=== PATIENT | male | born 1980 | race Caucasian/White ===

== ENCOUNTER 2021-03-06 06:26 | Emergency (ER) | payer OTHER ==
[~2021-03-06] VITALS: Ht 168 cm; Wt 120.0 kg
[~2021-03-06 06:26] MED LIST: LISI20TA PO; RANI75TA57 PO
[2021-03-06 07:03] LABS: BASOPHILS % (AUTO) 1 % (0-10); EOSINOPHILS # (AUTO) 0.1 10^3/uL (0.0-0.3); EOSINOPHILS % (AUTO) 2 % (0-10); HEMATOCRIT 38 % (40-54); HEMOGLOBIN 13.1 g/dL (13.3-17.7); LYMPHOCYTES % (AUTO) 17 % (12-44); MEAN CORPUSCULAR HEMOGLOBIN 28 pg (25-34); MEAN CORPUSCULAR HGB CONC 35 g/dL (32-36); MEAN CORPUSCULAR VOLUME 82 fL (80-99); MEAN PLATELET VOLUME 11.2 fL (9.0-12.2); MONOCYTES # (AUTO) 0.5 10^3/uL (0.0-1.0); MONOCYTES % (AUTO) 8 % (0-12); NEUTROPHILS # (AUTO) 4.2 10^3/uL (1.8-7.8); NEUTROPHILS % (AUTO) 72 % (42-75); PLATELET COUNT 150 10^3/uL (130-400); WHITE BLOOD COUNT 5.9 10^3/uL (4.3-11.0)
[2021-03-06 07:10] LABS: ALBUMIN 4.3 GM/DL (3.2-4.5)
[2021-03-06 07:11] LABS: INR 1.1 (0.8-1.4); POTASSIUM 4.2 MMOL/L (3.6-5.0); PROTHROMBIN TIME PATIENT 14.2 SEC (12.2-14.7)
[2021-03-06 07:12] LABS: CALCIUM 8.7 MG/DL (8.5-10.1)
[2021-03-06 07:13] LABS: TOTAL PROTEIN 6.9 GM/DL (6.4-8.2)
[2021-03-06 07:15] LABS: BILIRUBIN,TOTAL 0.6 MG/DL (0.1-1.0)
[2021-03-06 07:17] LABS: CREATININE SERUM 0.85 MG/DL (0.60-1.30)
--- NOTE | 2021-03-06 07:17 | ED Chest Pain ---
General Chief Complaint: Chest Pain Stated Complaint: CP,AGUILAR,SOB,HIGH BLOOD PRESSURE 193/138 Nursing Triage Note: PT AMB TO ED BY POV WITH C/O HIGH BP, CP, AGUILAR, AND SOB. PT REPORTS HES HAD BP ISSUES FOR THE LAST 2 MONTHS. REPORTS CP LAST NIGHT DESCRIBED "TINGLING," BP AT 0500 THIS MORNING WAS 193/138. Source: patient Exam Limitations: no limitations History of Present Illness Date Seen by Provider: Mar 06, 2021 Time Seen by Provider: 06:39 Initial Comments This 40-year-old gentleman presents to the emergency room with about a month of intermittent episodes of chest discomfort described as a tingling in his central chest that radiates to his back and into his left arm. He has also had some recent subtle shortness of breath. He is not having any chest discomfort at this moment. He has a long history of labile and extreme hypertension. He saw Dr. Love yesterday and his Coreg dose was increased. Despite that he reports a blood pressure this morning of 190 systolic. He was suffering headache and chest discomfort at that time. He took his usual morning medications as well as hydralazine prior to arrival. He is prescribed hydralazine as needed for hypertensive exacerbations. He had a negative angiography in 2011. There are no stress tests or catheterizations on file since then. Patient denies any excessive stimulant use except for greater than 4 cans of soda a day. He denies any drug or alcohol use. He uses no dietary supplements, energy drinks, ADHD medications, etc. Allergies and Home Medications Allergies Coded Allergies: No Known Drug Allergies (Unverified , 03/01/11) Patient Home Medication List Home Medication List Reviewed: Yes Lisinopril (Prinivil) 20 Mg Tablet, 10 MG PO DAILY, (Reported) Entered as Reported by: LATANYA CAMPO on 03/01/112306 Ranitidine Hcl (Acid Control) 75 Mg Tablet, 1 TAB PO BID PRN, (Reported) Entered as Reported by: ALIVIA LYNN on 03/17/111946 Review of Systems Review of Systems Constitutional: no symptoms reported EENTM: No Symptoms Reported Respiratory: See HPI Cardiovascular: See HPI Gastrointestinal: No Symptoms Reported Genitourinary: No Symptoms Reported Musculoskeletal: no symptoms reported Skin: no symptoms reported Psychiatric/Neurological: Anxiety Endocrine: No Symptoms Reported Hematologic/Lymphatic: No Symptoms Reported Past Kdaqrnt-Wrlxax-Iueqpd Hx Patient Social History Tobacco Use?: Yes Smokeless Tobacco Frequency: Current Everyday User Use of E-Cig and/or Vaping dev: No Substance use?: No Alcohol Use?: No Pt feels they are or have been: No Immunizations Up To Date Influenza Vaccine Up-to-Date: No; Not Current First/Initial COVID19 Vaccinat: N/A Past Medical History Surgery/Hospitalization HX: HTN, ASTHMA Surgeries: Yes Cardiac (Heart cath with no interventions 2011) Respiratory: Yes Asthma Cardiac: Yes Hypertension Neurological: No Reproductive Disorders: No Genitourinary: No Gastrointestinal: Yes Gastroesophageal Reflux Musculoskeletal: No Endocrine: No HEENT: No Cancer: No Psychosocial: Yes Anxiety Integumentary: No Physical Exam Vital Signs Vital Signs - First Documented 03/06/21 06:44 Temp 37.0 Pulse 70 Resp 16 B/P (MAP) 148/102 (117) Pulse Ox 97 O2 Delivery Room Air Capillary Refill : Less Than 3 Seconds Height, Weight, BMI Height: '" Weight: lbs. oz. kg; 42.00 BMI Method:Stated General Appearance: No Apparent Distress, WD/WN HEENT: PERRL/EOMI, Normal ENT Inspection Neck: Normal Inspection; No JVD Respiratory: Lungs Clear, Normal Breath Sounds, No Accessory Muscle Use Cardiovascular: Regular Rate, Rhythm, No Edema, No Murmur Gastrointestinal: Normal Bowel Sounds, Non Tender, Soft Extremity: Normal Inspection, Non Tender, No Pedal Edema Neurologic/Psychiatric: Alert, Oriented x3, No Motor/Sensory Deficits, Normal Mood/Affect, business intelligence reporting analyst II-XII Norm as Tested Skin: Normal Color, Warm/Dry Progress/Results/Core Measures Results/Orders Lab Results Laboratory Tests Test 03/06/21 06:52 03/06/21 07:10 Range/Units White Blood Count 5.9 4.3-11.0 10^3/uL Red Blood Count 4.62 4.30-5.52 10^6/uL Hemoglobin 13.1 L 13.3-17.7 g/dL Hematocrit 38 L 40-54 % Mean Corpuscular Volume 82 80-99 fL Mean Corpuscular Hemoglobin 28 25-34 pg Mean Corpuscular Hemoglobin Concent 35 32-36 g/dL Red Cell Distribution Width 12.9 10.0-14.5 % Platelet Count 150 130-400 10^3/uL Mean Platelet Volume 11.2 9.0-12.2 fL Immature Granulocyte % (Auto) 1 % Neutrophils (%) (Auto) 72 42-75 % Lymphocytes (%) (Auto) 17 12-44 % Monocytes (%) (Auto) 8 0-12 % Eosinophils (%) (Auto) 2 0-10 % Basophils (%) (Auto) 1 0-10 % Neutrophils # (Auto) 4.2 1.8-7.8 10^3/uL Lymphocytes # (Auto) 1.0 1.0-4.0 10^3/uL Monocytes # (Auto) 0.5 0.0-1.0 10^3/uL Eosinophils # (Auto) 0.1 0.0-0.3 10^3/uL Basophils # (Auto) 0.0 0.0-0.1 10^3/uL Immature Granulocyte # (Auto) 0.0 0.0-0.1 10^3/uL Prothrombin Time 14.2 12.2-14.7 SEC INR Comment 1.1 0.8-1.4 Activated Partial Thromboplast Time 33 24-35 SEC D-Dimer 0.29 0.00-0.49 UG/ML Sodium Level 139 135-145 MMOL/L Potassium Level 4.2 3.6-5.0 MMOL/L Chloride Level 105 98-107 MMOL/L Carbon Dioxide Level 23 21-32 MMOL/L Anion Gap 11 5-14 MMOL/L Blood Urea Nitrogen 12 7-18 MG/DL Creatinine 0.85 0.60-1.30 MG/DL Estimat Glomerular Filtration Rate 112 BUN/Creatinine Ratio 14 Glucose Level 116 H 70-105 MG/DL Calcium Level 8.7 8.5-10.1 MG/DL Corrected Calcium 8.5 8.5-10.1 MG/DL Magnesium Level 2.1 1.6-2.4 MG/DL Total Bilirubin 0.6 0.1-1.0 MG/DL Aspartate Amino Transf (AST/SGOT) 15 5-34 U/L Alanine Aminotransferase (ALT/SGPT) 22 0-55 U/L Alkaline Phosphatase 64 40-136 U/L Myoglobin 27.6 10.0-92.0 NG/ML Troponin I < 0.028 <0.028 NG/ML C-Reactive Protein High Sensitivity 0.33 0.00-0.50 MG/DL B-Type Natriuretic Peptide 54.2 <100.0 PG/ML Total Protein 6.9 6.4-8.2 GM/DL Albumin 4.3 3.2-4.5 GM/DL Renin Activity Aldosterone NG/DL Procalcitonin 0.01 <0.10 NG/ML Thyroid Stimulating Hormone (TSH) 0.78 0.35-4.94 UIU/ML Free Thyroxine 0.78 0.70-1.48 NG/DL Influenza Type A (RT-PCR) Not Detected Not Detecte Influenza Type B (RT-PCR) Not Detected Not Detecte SARS-CoV-2 RNA (RT-PCR) Not Detected Not Detecte My Orders Orders - JENNY ALLISON MD Covid 19 Inhouse Test (03/06/21 06:39) Influenza A And B By Pcr (03/06/21 06:39) Cbc With Automated Diff (03/06/21 06:39) Magnesium (03/06/21 06:39) Chest 1 View, Ap/Pa Only (03/06/21 06:39) Ekg Tracing (03/06/21 06:39) Comprehensive Metabolic Panel (03/06/21 06:39) Myoglobin Serum (03/06/21 06:39) Protime With Inr (03/06/21 06:39) Partial Thromboplastin Time (03/06/21 06:39) O2 (03/06/21 06:39) Monitor-Rhythm Ecg Trace Only (03/06/21 06:39) Ed Iv/Invasive Line Start (03/06/21 06:39) Troponin I Marlon (03/06/21 06:39) Bnp [place] (03/06/21 06:39) Hs C Reactive Protein (03/06/21 06:39) Fibrin Degradation Products (03/06/21 06:39) Procalcitonin (Pct) (03/06/21 06:39) Thyroid Stimulating Hormone (03/06/21 07:03) Free T4 (Free Thyroxine) (03/06/21 07:03) Renin Activity Plasma (03/06/21 08:31) Aldosterone Serum (03/06/21 08:31) Aldosterone Renin Ratio (03/06/21 08:31) Vital Signs/I&O 03/06/21 03/06/21 06:44 09:00 Temp 37.0 Pulse 70 64 Resp 16 16 B/P (MAP) 148/102 (117) 127/92 Pulse Ox 97 96 O2 Delivery Room Air Room Air Blood Pressure Mean: 117 Progress Progress Note #1: Time: 07:39 Progress Note Chest pain and headache have improved. Blood pressure is significantly improved from his measurements at home. Chest pain work-up is underway. Progress Note #2: Time: 08:36 Progress Note I discussed the situation with Dr. Love. Work-up here was unremarkable. Bl ood pressure has improved without additional treatment. Dr. Love would like him to allow medications a week or 2 to take effect before determining if further measures need to be taken. Patient did reveal that he has not been using his CPAP routinely. I have strongly encouraged him to use CPAP as this could be a major contributing factor to his headaches and labile hypertension. I have instructed him to continue working on weight loss. Dietary recommendations are also being provided to reduce risk of acid reflux. Renal and and aldosterone labs have been ordered for outpatient work-up. We will try to obtain those on his blood work here to avoid creating another encounter for blood draw. Initial ECG Impression Date: Mar 06, 2021 Initial ECG Impression Time: 06:55 Initial ECG Rate: 68 Initial ECG Rhythm: Normal Sinus Comment Sinus rhythm with no diagnostic ST elevation or depression. Incomplete right bundle branch block by automated read. No axis deviation. No STEMI. Diagnostic Imaging Diagonstic Imaging: Xray Plain Films/CT/US/NM/MRI: chest Comments NAME: ALBINO QUIÑONEZ [facility] REC#: [id number] PT STATUS: REG ER : 1980 PHYSICIAN: JENNY ALLISON MD ADMIT DATE: 03/06/21/ER Draft Date of Exam:03/06/21 CHEST 1 VIEW, AP/PA ONLY EXAM: CHEST 1 VIEW, AP/PA ONLY INDICATION: Chest pain. COMPARISON: 03/17/2011. FINDINGS: Normal heart size and pulmonary vascularity. No dense consolidation, pleural effusion or pneumothorax. No acute osseous findings. IMPRESSION: No acute cardiopulmonary findings. Dictated on workstation # [id number] Dict: 03/06/2112 Trans: 03/06/21 0714 [place] [id number] Interpreted by: ALONA FREEDMAN MD Departure Impression Primary Impression: Chest pain Qualified Codes: R07.9 - Chest pain, unspecified Additional Impressions: Labile hypertension Anxiety Obstructive sleep apnea Disposition: 01 HOME, SELF-CARE Condition: Stable Departure-Patient Inst. Decision time for Depature: 08:35 Referrals: ELISHA SCHULTE MD (PCP/Family) Primary Care Physician Patient Instructions: High Blood Pressure in Adults, Anxiety, Adult (DC) Add. Discharge Instructions: Continue your medications as previously directed. Continue to work on weight loss and use your CPAP religiously anytime you are asleep. Continue to work on treating acid reflux with the increased dose of an acids as directed by Dr. Love. Also avoid the following: Eating large meals, eating close to bedtime, caffeine, carbonation, chocolate, citrus fruits and juices, tomato products, alcohol, tobacco, NSAID medications such as ibuprofen or naproxen, spicy foods, fatty or greasy foods, mints, or anything else you know irritates your stomach. The additional blood work ordered by Dr. Love has been ordered through your blood draw during the ER visit. You should not need to go in for additional blood work. Call with questions or concerns. Return to the ER if you have worsening symptoms. All discharge instructions reviewed with patient and/or family. Voiced understanding. Copy Copies To 1: PRISCILA LOVE JR, MD Copies To 2: ELISHA SCHULTE MD, JOSHUA T MD Mar 06, 2021 07:17
[2021-03-06 07:19] LABS: MAGNESIUM 2.1 MG/DL (1.6-2.4)
[2021-03-06 07:49] LABS: FREE T4 (FREE THYROXINE) 0.78 NG/DL (0.70-1.48)
[2021-03-06 09:00] VITALS: BP 127/92
== END 2021-03-06 09:10 | disposition home or self-care (01) ==
LOC: EDUNIT# 06:26 → ER 06:31
DX: R07.9 Chest pain, unspecified (principal); I10 Essential (primary) hypertension; F41.9 Anxiety disorder, unspecified; G47.33 Obstructive sleep apnea (adult) (pediatric); J45.909 Unspecified asthma, uncomplicated; K21.9 Gastro-esophageal reflux disease without esophagitis; F17.290 Nicotine dependence, other tobacco product, uncomplicated; Z20.822 Contact with and (suspected) exposure to COVID-19; Z79.899 Other long term (current) drug therapy
CPT/HCPCS: 36415; 71045; 80053; 82088; 83735; 83874; 83880; 84145; 84244; 84439; 84443; 84484; 85025; 85379; 85610; 85730; 86141; 87636; 93005; 93041

== ENCOUNTER → 2021-03-26 | Outpatient (CLI) | payer OTHER ==
[~2021-03-26] VITALS: Ht 167 cm; Wt 118.0 kg
[~2021-03-26] MED LIST changes: +CATHETER FLUSH 10 ML SYR IV PRN
[2021-03-26 09:13] VITALS: BP 117/72
--- NOTE | 2021-03-26 12:35 | NUCLEAR STRESS TEST ---
TREADMILL NUCLEAR STRESS TEST Date of procedure: 03/26/2021. Primary care provider: Kamron Cameron MD. Admitting physician: Joe Love Jr., MD. INDICATION: Abnormal electrocardiogram. BASELINE ELECTROCARDIOGRAM: Sinus rhythm with incomplete right bundle branch block. STRESS TEST PROCEDURE: The patient was exercised for a total of 10 minutes and 0 seconds of the standard Mo protocol achieving a maximum MET level of 10.3. The resting heart rate was 63 bpm and the peak heart rate was 154 bpm, which represents 86% of the maximum predicted heart rate. The resting blood pressure was 117/72 mmHg and the peak blood pressure was 165/90 mmHg. This represents a normal heart rate and a normal blood pressure response to exercise. The test was stopped due to fatigue. There was no chest discomfort during the test. There were no arrhythmias during the test. There were no significant stress induced electrocardiogram changes. The patient exhibited excellent exercise capacity for age. NUCLEAR PROCEDURE: The patient was administered 10.3 mCi of intravenous technetium 99m Tetrofosmin at rest for the rest images. The patient was subsequently administered 32.5 mCi of intravenous technetium 99 M Tetrofosmin at peak stress for the stress images. Following an appropriate wait after each injection, imaging was obtained. The images were subsequently processed and ref ormatted in the usual views. Gated imaging was obtained. The image quality was adequate but with gastrointestinal and motion attenuation artifacts. CT attenuation correction was used as a adjunct to standard imaging. Both the corrected and uncorrected images were reviewed for interpretation. NUCLEAR RESULTS: There was normal myocardial perfusion in all segments without evidence of infarction or ischemia. There was normal left ventricular chamber size with an end-diastolic volume of 73 mL and an end-systolic volume of 24 mL. There was no evidence of transient ischemic dilatation. The TID ratio was 0.97. There was normal wall motion in all segments with a calculated ejection fraction of 67%. IMPRESSION: 1. Normal heart rate and blood pressure response to exercise. 2. There was no chest discomfort, arrhythmias, or electrocardiogram changes during the test. 3. The patient exhibited excellent exercise capacity for age at 10 minutes of the Mo protocol. 4. There was normal myocardial perfusion in all segments without evidence of infarction or ischemia. 5. There was normal wall motion in all segments with a calculated ejection fra ction of 67%. Certain portions of this document may have been dictated utilizing voice recognition technology. Inherent to this technology, typographical and grammatical errors may exist. As much as I am diligent to identify and correct these mistakes, some errors may remain in the document. JOE LOVE JR, MD Mar 26, 2021 12:35
== END ==
LOC: CARD 07:16
PROVIDERS: ATTEND Internal Medicine Cardiovascular Disease
DX: R94.31 Abnormal electrocardiogram [ECG] [EKG] (principal)
CPT/HCPCS: 78452; 93017; A9502

== ENCOUNTER 2021-04-30 05:31 | Outpatient (RCR) | payer OTHER ==
[~2021-04-30] VITALS: Ht 167.7 cm; Wt 118.2 kg
[~2021-04-30 05:31] MED LIST changes: +ALPR0.5T7 PO; +CARV25TA PO; -CATHETER FLUSH 10 ML SYR IV PRN; +FLUO20TA28 PO; +HYDR-3922 PO; +LOSA50TA63 PO; +OMEP40CA6 PO; +TRAM50TA3 PO
== END 2021-04-30 11:31 | disposition home or self-care (01) ==
LOC: PREOP 05:31
PROVIDERS: ATTEND Surgery
DX: Z01.812 Encounter for preprocedural laboratory examination (principal); Z20.822 Contact with and (suspected) exposure to COVID-19
CPT/HCPCS: 87635

== ENCOUNTER 2021-05-04 10:16 | Day surgery (SDC) | payer OTHER ==
[~2021-05-04] VITALS: Ht 168 cm; Wt 118.0 kg
[2021-05-04] MEDS ORDERED: LACTATED RINGERS 1,000 ML IV ONE (10:23)
[2021-05-04] MEDS ORDERED: LACTATED RINGERS 1,000 ML IV STA (10:29)
[2021-05-04] MEDS ORDERED: HURRICAINE EXT TUBE (BENZOCAINE) XX PRN (10:30)
[2021-05-04 10:35] VITALS: BP 117/75
--- NOTE | 2021-05-04 11:41 | Progress Note-Pre Operative ---
Pre-Operative Progress Note H&P Reviewed The H&P was reviewed, patient examined and no changes noted. Time Seen by Provider: 11:22 Date H&P Reviewed: May 04, 2021 Time H&P Reviewed: : Pre-Operative Diagnosis: GEMINI ANDERSON DO May 04, 2021 11:41
[2021-05-04] MEDS ORDERED: MIDAZOLAM 2 MG/2 ML (VERSED) VIAL ONE (12:15)
[2021-05-04] MEDS ORDERED: proPOfol 200 MG/20 ML (DIPRIVAN) VIAL IV ONE (12:15)
--- NOTE | 2021-05-04 12:37 | Progress Note-Post Operative ---
Post-Operative Progess Note Surgeon (s)/Drug Clerk (s) Surgeon GEMINI LAWRENCE DO Drug Clerk: none Pre-Operative Diagnosis GERD Post-Operative Diagnosis Gastritis mild hiatal hernia Procedure & Operative Findings Date of Procedure 05/04/21 Procedure Performed/Findings EGD with bx PROCEDURE NOTE: After informed consent was obtained, the patient was brought to the endoscopy suite, placed in bed in left lateral decubitus position. He was administered IV sedation by the WORKPLACE RELATIONS ADVISER who then monitored vitals the entire time, heart rate, blood pressure and pulse ox and the scope was inserted down the mouth through the esophagus into the stomach. On the way down, noted some mild esophagitis, took a picture, pushed into the stomach, pushed past the antrum into the duodenum. Duodenum looked good. Pulled back and did a biopsy of antrum, then retroflexed the scope, saw hiatal hernia, took a picture of this and then pulled the scope into the GE junction, took another picture of the hiatal hernia and then did a biopsy of the GE junction. Pushed the scope back into the stomach, suctioned all the air out of the stomach. At this point pulled the scope up the esophagus and out the mouth. The patient tolerated the procedure, and he recovered in endoscopy suite. Anesthesia Type IV sedation by WORKPLACE RELATIONS ADVISER Estimated Blood Loss Estimated blood loss (mL): scant Specimens/Packing Specimens Removed antral bx GE jxn bx GEMINI LAWRENCE DO May 04, 2021 12:37
--- NOTE | 2021-05-04 12:37 | Endoscopy Discharge Instruct ---
Endo Procedure/Findings Findings 1.: Gastritis 2.: Hiatal Hernia Discharge Instructions - Activity: You might feel a little sleepy until tomorrow. This is due to the medicine you received to relax you. Until tomorrow, you should: NOT drive a car, operate machinery or power tools. NOT drink any alcoholic beverages. NOT make any important decisions or sign importortant papers. Do not return to work until tomorrow, unless otherwise instructed. Resume previous activities tomorrow. Diet: Start by taking liquids. If you tolerate liquids, advance to solid food. 1.: EGD in 3 years Notify Physician - If you experience excessive bleeding, unusual abdominal pain, fever, or chest pain, contact your doctor immediately. GEMINI LAWRENCE DO May 04, 2021 12:37
[2021-05-04 12:42] VITALS: BP 121/64
[2021-05-04 12:47] VITALS: BP 124/65
[2021-05-04 12:52] VITALS: BP 123/74
[2021-05-04 12:55] VITALS: BP 123/74
[2021-05-04 13:15] VITALS: BP 123/74
--- NOTE | 2021-05-04 14:02 | Anesthesia-General Post-Op ---
MAC Patient Condition Mental Status/LOC: Same as Preop Cardiovascular: Satisfactory Nausea/Vomiting: Absent Respiratory: Satisfactory Pain: Controlled Complications: Absent Post Op Complications Complications None Follow Up Care/Instructions Patient Instructions None needed. Anesthesiology Discharge Order Discharge Order Patient is doing well, no complaints, stable vital signs, no apparent adverse anesthesia problems. No complications reported per nursing. ROSA MORALES CRNA May 04, 2021 14:02
== END 2021-05-04 13:15 | disposition home or self-care (01) ==
LOC: ENDO 10:16
PROVIDERS: ATTEND Surgery
DX: K29.50 Unspecified chronic gastritis without bleeding (principal); K44.9 Diaphragmatic hernia without obstruction or gangrene; K21.00 Gastro-esophageal reflux disease with esophagitis, without bleeding; R07.9 Chest pain, unspecified; F17.220 Nicotine dependence, chewing tobacco, uncomplicated

== ENCOUNTER → 2021-05-27 | Outpatient (CLI) | payer OTHER ==
[~2021-05-27] MED LIST changes: +ACET-2267 PO; +ALBU2.5V4 INH; +AMLO-251 PO; +ARIP2TAB20 PO; +HYDR200T46 PO; +IBUP-2473 PO; +LOSA100T57 PO; +RT-ALBUINH IH; +RT-ALBUTEROL SULF 2.5 MG/3 ML PRE-MIX VIAL INH ONE
== END ==
LOC: RT 09:15
PROVIDERS: ATTEND Internal Medicine Cardiovascular Disease
DX: R06.09 Other forms of dyspnea (principal)
CPT/HCPCS: 94060; 94726; 94729

== ENCOUNTER 2021-05-28 10:30 | Day surgery (SDC) | payer OTHER ==
[~2021-05-28] VITALS: Ht 168.9 cm; Wt 117.8 kg
[2021-05-28] VITALS (9 sets, daily range): BP systolic 114–150; BP diastolic 71–99
[~2021-05-28 10:30] MED LIST changes: +ASPIRIN 81 MG CHEW (CHILDREN'S ASA) ONE; +ASPIRIN 81 MG CHEW (CHILDREN'S ASA) PO ONE; +CATHETER FLUSH 10 ML SYR IV PRN; +HEParin (CATH LAB) 2,000 ML IV ONE; +LIDOCAINE 1% INJ 50 ML (XYLOCAINE) VIAL ONE; +NS IV 1000 ML 1,000 ML IV ONE; -RT-ALBUTEROL SULF 2.5 MG/3 ML PRE-MIX VIAL INH ONE
[2021-05-28] MEDS ORDERED: VERAPAMIL 5 MG/2 ML (CALAN) VIAL IV ONE (12:31)
[2021-05-28] MEDS ORDERED: MIDAZOLAM 5 MG/5 ML (VERSED) VIAL ONE (12:32)
[2021-05-28] MEDS ORDERED: fentaNYL INJ 100 MCG/2 ML AMP ONE (12:32)
[2021-05-28] MEDS ORDERED: HEParin 1000 UNIT/ML (10ML VIAL) FOR BOLUS ONE (12:32)
[2021-05-28] MEDS ORDERED: NITRO DRIP 25000 MCG/D5W 250 ML IV ONE (12:32)
--- NOTE | 2021-05-28 12:48 | Pre-Op Note & Conscious Sedat ---
Pre-Operative Progress Note H&P Reviewed The H&P was reviewed, patient examined and no changes noted. Date H&P Reviewed: May 28, 2021 Time H&P Reviewed: 12:47 Pre-Op Diagnosis: Chest pain Conscious Sedation Pre-Proced ASA Score 2 For ASA 3 and 4: Consider anesthesia and medical clearance. Also, for patients with a history of failed moderate sedation consider anesthesia. Airway Lungs Heart ASA score ASA 1: a normal healthy patient ASA 2: a patient with a mild systemic disease (mid diabetes, controlled hypertension, obesity ASA 3: a patient with a severe systemic disease that limits activity (angina, COPD, prior Myocardial infarction) ASA 4: a patient with an incapacitating disease that is a constant threat to life (CHF, renal failure) ASA 5: a moribund patient not expected to survive 24 hrs. (ruptured aneurysm) ASA 6: a declared brain- patient whose organs are being harvested. For emergent operations, add the letter E after the classification Mallampati Classification Grade 2 Sedation Plan Analgesia, Amnesia, Plan communicated to team members, Discussed options with patient/fam, Discussed risks with patient/fam The patient is an appropriate candidate to undergo the planned procedure, sedation, and anesthesia. The patient immediately re-assessed prior to indication. PRISCILA GOLDSMITH JR, MD May 28, 2021 12:48
[2021-05-28] MEDS ORDERED: NS IV 1000 ML 1,000 ML IV SCH (13:30)
--- NOTE | 2021-05-28 16:41 | Cardiac Cath Report ---
CARDIAC CATHETERIZATION DATE OF PROCEDURE: 05/28/2021 INDICATION: Chest pain. HISTORY: The patient is a 40 year old male with no known history of coronary artery disease who has had persistent chest discomfort over the past several months. He underwent a nuclear stress test that was normal. He was placed on a proton pump inhibitor but continued to have chest discomfort and dyspnea. As such, he is now referred for further evaluation with a cardiac catheterization. PROCEDURES PERFORMED: 1. Left heart catheterization with hemodynamic measurements. 2. Diagnostic [place] coronary angiography. PROCEDURE DESCRIPTION: After informed consent and in the fasting state, left heart catheterization was performed through the right radial artery utilizing a 6 Argentine system by percutaneous approach. Standard 5 [place] Payal catheters as well as a 5 [place] AR mod catheter and a 5 [place] Connor right catheter were utilized for the diagnostic portion of the procedure. All catheters were exchanged over a guidewire. Following the procedure, a vascular band was applied to the radial artery access site and the sheath was removed with good hemostasis. RESULTS: HEMODYNAMICS: The aortic pressure was 142/89 mmHg. The left ventricular pressure was 148/0 mmHg with a left ventricular end-diastolic pressure of 20 mmHg. There was no significant pressure gradient upon pullback across aortic valve. CORONARY ANGIOGRAPHY: Left main coronary artery: Free of significant disease. Left anterior descending coronary artery: Free of significant disease. Left circumflex coronary artery: Free of significant disease. Right coronary artery: Dominant and free of significant disease. IMPRESSION: 1. Systemic hypertension with elevated left ventricular end-diastolic pressure. 2. Angiographically normal-appearing coronary arteries in a right dominant system. 3. The patient is known to have normal left ventricular systolic function with a calculated ejection fraction of 67% by nuclear stress test performed on 04/2021. Certain portions of this document may have been dictated utilizing voice recognition technology. Inherent to this technology, typographical and grammatical errors may exist. As much as I am diligent to identify and correct these mistakes, some errors may remain in the document. PRISCILA GOLDSMITH JR, MD May 28, 2021 16:41
== END 2021-05-28 15:45 ==
LOC: CATH 10:30 → SDC 13:36 → CATH 15:45
PROVIDERS: ATTEND Internal Medicine Cardiovascular Disease
DX: R07.89 Other chest pain (principal); I10 Essential (primary) hypertension; K20.90 Esophagitis, unspecified without bleeding; K29.70 Gastritis, unspecified, without bleeding; R06.09 Other forms of dyspnea; R94.4 Abnormal results of kidney function studies; R94.31 Abnormal electrocardiogram [ECG] [EKG]; J45.909 Unspecified asthma, uncomplicated; E66.01 Morbid (severe) obesity due to excess calories; G47.33 Obstructive sleep apnea (adult) (pediatric); F41.9 Anxiety disorder, unspecified; Z99.89 Dependence on other enabling machines and devices; Z79.899 Other long term (current) drug therapy; Z68.41 Body mass index [BMI] 40.0-44.9, adult
CPT/HCPCS: 93454; C1894

== ENCOUNTER → 2021-05-29 | Outpatient (CLI) | payer OTHER ==
[~2021-05-29] MED LIST changes: -ASPIRIN 81 MG CHEW (CHILDREN'S ASA) ONE; -ASPIRIN 81 MG CHEW (CHILDREN'S ASA) PO ONE; -HEParin (CATH LAB) 2,000 ML IV ONE; +HOLD METFORMIN - RECEIVED CONTRAST 20 ML VIAL IV SCH; +IOHEXOL 350 MG/ML 100 ML (OMNIPAQUE 350) VIAL IV ONE; -LIDOCAINE 1% INJ 50 ML (XYLOCAINE) VIAL ONE; +NS 100 ML (IVPB) BAG IV ONE; -NS IV 1000 ML 1,000 ML IV ONE
--- NOTE | 2021-05-29 08:22 | Diagnostic Imaging Report ---
EXAMINATION: CT chest with intravenous contrast. TECHNIQUE: Multiple contiguous axial images were obtained through the chest after the uneventful administration of intravenous contrast. All CT scans use one or more of the following dose optimizing techniques: automated exposure control, MA and/or KvP adjustment based on patient size and exam type or iterative reconstruction. HISTORY: Left-sided chest pain and shortness of breath COMPARISON: None available. FINDINGS: Thyroid: The thyroid is normal. Mediastinum: Heart size is normal without significant pericardial effusion. The aorta is normal in caliber. No suspicious lymphadenopathy. Lungs and airways: The lungs are clear without consolidation, pleural effusion, or pneumothorax. There are reticular nodular opacities within the inferior medial right upper and left upper lobes. The airways are normal. Upper abdomen: The subphrenic structures are normal. Musculoskeletal: Degenerative changes of the spine without suspicious osseous lesion or compression fracture. IMPRESSION: 1. Reticulonodular opacities within the medial bilateral upper lobes which can be seen with atypical infection. Dictated by: Dictated on workstation # [id number]
== END ==
LOC: RAD 08:15
PROVIDERS: ATTEND Internal Medicine Cardiovascular Disease
DX: J18.9 Pneumonia, unspecified organism (principal); R91.8 Other nonspecific abnormal finding of lung field
CPT/HCPCS: 71260